=== PATIENT | male | born 1975 | race Caucasian/White ===

== ENCOUNTER 2023-04-13 11:23 | Outpatient (AMB) | payer OTHER, SELFPAY ==
--- NOTE | 2023-04-13 11:25 | MHC.OFFVIS ---
Intake Vital Signs 04/13/23 11:32 Height 5 ft 10 in Weight 231 lb BMI 33.1 BP 129/64 Blood Pressure Location Lt brachial Position Sitting Pulse 62 Intake Visit Reasons: Colonoscopy screening Intake Note: New consult for 1st pre Colonoscopy screening. Patient cc: acid reflex with burning sensation after eating and medication for PPI are not helping him. Fire Regulator Required: No Accompanied by: Spouse Allergies No Known Allergies Allergy (Verified 04/13/23 11:25) Medication List - Last Reconciled 04/13/23 by Kellee Guerrero PA-C No Known Home Meds HPI HPI Comments History of Present Illness Details A 47-year-old male referred for index screening colonoscopy- Mat GM- CRC in her 80s- Bowels are normal For the past year-Acid reflux- wakes up with it-taking pantoprazole or omeprazole inconsistenly-good appetite- no weight gain He has made dietary modifications he does not identify anything specific that causes No cardiac or respiratory issue No N/V/D/ abdominal pain, fever or chills PFSH Social History (Updated 04/13/23 @ 11:49 by Kellee Guerrero PA-C) Household Members Other:: 2 kids Comment: socially Patient Tobacco Use Status: Never used Tobacco Current occupational status: employed 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 Review of Systems Const All systems reviewed & are unremarkable except as noted in HPI and below Card Denies chest pain and Denies dyspnea Resp Denies dyspnea GI Denies abdominal pain, Reports change in bowel habits, Reports heartburn, Denies nausea and Denies vomiting Physical Exam Vital Signs: Last Vital Signs Pulse 62 04/13/23 11:32 BP 129/64 04/13/23 11:32 BMI result Body Mass Index 33.1 Const General: cooperative, healthy appearing, comfortable and no acute distress Orientation/consciousness: patient oriented x3 Limitations: language barrier Eyes Sclerae: sclerae normal Resp Effort & Inspection: normal respiratory effort and able to speak in complete sentences Auscultation: clear to auscultation bilaterally, no rales, no rhonchi and no wheezes Cardio Rate: regular rate Rhythm: regular rhythm Heart sounds: S1 normal heart sound present and S2 normal heart sound present GI Palpation (GI): Soft to palpation and nontender Auscultation: normal bowel sounds Skin General skin exam: no rashes or lesions noted Neuro General: patient oriented x3 Extrem General: Yes full ROM Psych Appearance: grossly normal and well kempt Mental Status: mental status grossly normal Speech and movement: Normal speech and movement present and Clear speech present Affect: normal affect Attitude: cooperative Thought process: Normal thought process present Thought content: Normal thought content present Insight: Good insight present (Psych) Judgement: Good judgement present (Psych) Assessment & Plan Assessment & Plan (1) Encounter for screening colonoscopy: Comment: Discussed procedure, risks need for escorted due to anesthesia- 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 Code(s): Z12.11 - Encounter for screening for malignant neoplasm of colon Plan: Index screening colonoscopy (2) Acid reflux: Comment: Unable to identify anything specific Code(s): K21.9 - Gastro-esophageal reflux disease without esophagitis Plan: Reflux precautions Pantoprazole 20 mg daily EGD r/o pud, nonulcer dyspepsia, esophagitis or other endoscopic findings to account for his symptoms Plan EGD/ colon- MG prep pantoprazole 20 Orders: Orders EGD/[place] Combo - GI Use Only Today Medications: New bisacodyl (Dulcolax (bisacodyl)) Day before procedure, prep day Take 4 tablets by mouth upon awakening followed by large glass of water 20 mg (4 x 5 mg) PO ONCE 4 tabs 0RF colonoscopy prep 1 day Z12.11 - Encounter for screening for malignant neoplasm of colon polyethylene glycol 3350 (Miralax) Take as directed by mouth the day before your procedure. 238 grams PO ONCE PRN 238 grams 0RF laxative effect 1 day pantoprazole 20 mg PO QAM 30 tabs 6RF Patient Instructions: EGD/ colon- MG prep reviewed, and literature Reflux precautions pantoprazole 20 mg QD-be consistent Try to identify culprits and avoid Encouraged to call questions or concerns Coding Level of Care Code New Pt Level 3 (15929) Diagnoses Encounter for screening colonoscopy Z12.11 Acid reflux K21.9 Time Spent (min) 30
[2023-04-13 11:32] VITALS: BP 129/64; PULSE 62; BMI 33.1
== END 2023-04-13 13:00 | disposition home or self-care (01) ==
PROVIDERS: PCP Internal Medicine; Visit Provider Physician Assistant
DX: Z12.11 Encounter for screening for malignant neoplasm of colon (principal); K21.9 Gastro-esophageal reflux disease without esophagitis; Z01.818 Encounter for other preprocedural examination
CPT/HCPCS: 99203

== ENCOUNTER → 2023-04-13 11:23 | Outpatient (BNVA) | payer OTHER, SELFPAY | PROVIDERS: PCP Internal Medicine; Visit Provider Physician Assistant | DX: Z12.11 Encounter for screening for malignant neoplasm of colon (principal); K21.9 Gastro-esophageal reflux disease without esophagitis | CPT/HCPCS: 99202 ==

== ENCOUNTER 2023-04-24 12:38 | Outpatient (REF) | payer OTHER, SELFPAY ==
[2023-04-25 04:15] LABS: HBS Num1 0.23 mIU/mL (0-7.99); HBc Num1 0.04 S/CO (0.00-0.79); HBsAGNum1 0.36 S/CO (0.00-0.99); Hepatitis A Antibody IgM 0.41 Index (0-0.79); Hepatitis B Core Antibody Nonreactive (Nonreactive); Hepatitis B Surface Antigen Negative (Negative); ~HepC Num1 0.14 S/CO (0.00-0.79); ~Hepatitis A Antibody IgM Nonreactive (Nonreactive); ~Hepatitis B Surface Antibody NONREACTIVE (Nonreactive); ~Hepatitis C Antibody Nonreactive (Nonreactive)
[2023-04-28 05:28] LABS: Rubella IgG Antibody 2.14 Index
[2023-04-29 17:54] LABS: Polio 3 Titer >1:128
== END 2023-04-24 12:39 | disposition home or self-care (01) ==
LOC: HO.CHCLDS 12:38
PROVIDERS: Visit Provider Internal Medicine
DX: Z00.00 Encounter for general adult medical examination without abnormal findings (principal)
CPT/HCPCS: 36415; 86382; 86704; 86706; 86709; 86735; 86762; 86765; 86787; 86803; 87340

== ENCOUNTER 2023-04-27 08:43 | Outpatient (REF) | payer OTHER, SELFPAY ==
[2023-04-29 20:24] LABS: TS Negative Control Passed; TS Panel A 1; TS Panel B 1; TS Positive Control Passed; TSpotTB Negative (Negative)
== END 2023-04-27 08:44 | disposition home or self-care (01) ==
LOC: HO.CHCLDS 08:43
PROVIDERS: Visit Provider Internal Medicine
DX: Z00.00 Encounter for general adult medical examination without abnormal findings (principal); Z11.1 Encounter for screening for respiratory tuberculosis
CPT/HCPCS: 36415; 86481

== ENCOUNTER 2023-08-12 11:01 | Day surgery (SDC) | payer OTHER, SELFPAY ==
[2023-08-11 07:38] VITALS: BMI 33.1
--- NOTE | 2023-08-11 08:33 | P.CONAN_ITS ---
Documented by User: Lisbet Griffin NP 08/11/23 08:33 HPI - Anesthesia Eval Consult details Narrative: 48yo M for Upper Endoscopy and Colonoscopy FOR[facility]LY [facility], [facility] Active Problems Active Problems: All Active Problems Acid reflux (Acute) H/O vasectomy (Acute) Encounter for screening colonoscopy (Acute) Past Medical History Medical History GERD (gastroesophageal reflux disease) Surgical History Surgical History Surgical history unknown Social History Social History Household Members Other:: 2 kids Comment: socially Patient Tobacco Use Status: Never used Tobacco Advance Directives: No Advance Directives Information Provided: Yes Current occupational status: employed 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 Meds Allergies Allergy/AdvReac Type Severity Reaction Status Date / Time No Known Allergies Allergy Verified 04/13/23 11:25 Exam Height,Weight and Vital Signs: Height 5 ft 10 in Weight 104.78 kg Assessment and Plan Assessment Anesthesia Assessment: Chart Reviewed Documented by User: Araseli Maciel MD 08/12/23 11:16 [facility]LY [facility], [facility] Past Medical History Medical History GERD (gastroesophageal reflux disease) Surgical History Surgical History Surgical history unknown History of Problems with Anesthesia: No Social History Social History Household Members Other:: 2 kids Comment: socially Patient Tobacco Use Status: Never used Tobacco Advance Directives: No Advance Directives Information Provided: Yes Current occupational status: employed 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 Meds Allergies Allergy/AdvReac Type Severity Reaction Status Date / Time No Known Allergies Allergy Verified 04/13/23 11:25 Exam Airway Mallampati Class: III TM Dist: >3cm Neck ROM: Full Loose/Missing/Broken Teeth: No Heart: RRR Lungs: CTA Assessment and Plan Assessment Anesthesia Assessment: Anesthesia Plan Discussed Final Anesthetic Review History of Problems with Anesthesia: No NPO: Yes ASA Class: II Final Preanesthetic Review: Meds/Allgs Chart Reviewed, Consent Obtained/Reviewed and Anes Risks/Benef Reviewed Patient Risk: Low Procedure Risk: Intermediate Anesthetic Plan Anesthetic Plan: MAC: Disposition: Standard PACU
--- OUTSIDE RECORDS SUMMARY | 2023-08-12 11:04 | XMS_ITS | Continuity of Care Document ---
Author Name [facility] Care Team Providers Care Vacuum Technician Name Role Phone [facility] Unavailable Unavailable Problems Problem Status Onset Date Classification Date Reported Comments Source Unspecified abdominal pain 01/26/2018 [facility] Right lower quadrant pain 01/26/2018 [facility] Medications Medication Details Route Status Patient Instructions Ordering Provider Order Date Source Ibuprofen 600 MG Oral Tablet 1 Tab, PO, TID, PRN for pain, Qty: 30 Tab, Refills: 0, with food or milk, Print Requisition Active 01/20/20 18 [facility] No Known Medications No known medications Active 01/20/20 18 [facility] Results Order Name Results Value Reference Range Date Interpretation Comments Source UA Appearance Slightly Cloudy Clear 2017 A [facility] UA Color Yellow Yellow 2017 [facility] UA Specific [place] 1.010 1.005 - 1.030 2017 [facility] UA UpH 5.0 5.0 - 9.0 2017 [facility] UA UBlood Trace-inta ct Negative 2017 A [facility] UA UBilirubin Negative Negative 2017 [facility] UA UGlucose Negative Negative 2017 [facility] UA UKetones Negative Negative 2017 [facility] UA ULeukocyte Esterase Negative Negative 2017 [facility] UA UNitrite Negative Negative 2017 [facility] UA UProtein Negative Negative 2017 [facility] UA UA Urobilinogen 0.2 0.2 E.U./dL 2017 [facility] Urinalysis Appearance Slightly Cloudy *ABN* (01/19/18 1:27 PM) Clear 2017 [facility] Urinalysis Color Yellow (01/19/18 1:27 PM) Yellow 2017 [facility] Urinalysis UNitrite Negative (01/19/18 1:27 PM) Negative 2017 [facility] Urinalysis ULeukocyte Esterase Negative (01/19/18 1:27 PM) Negative 2017 [facility] Urinalysis UA Urobilinogen 0.2 E.U./dL (01/19/18 1:27 PM) 0.2 E.U./dL 2017 [facility] Urinalysis UProtein Negative (01/19/18 1:27 PM) Negative 2017 [facility] Urinalysis UKetones Negative (01/19/18 1:27 PM) Negative 2017 [facility] Urinalysis UGlucose Negative (01/19/18 1:27 PM) Negative 2017 [facility] Urinalysis Specific [place] 1.010 (01/19/18 1:27 PM) 1.005 - 1.030 2017 [facility] Urinalysis UBlood Trace-inta ct *ABN* (01/19/18 1:27 PM) Negative 2017 [facility] Urinalysis UpH 5.0 (01/19/18 1:27 PM) 5.0 - 9.0 2017 [facility] Urinalysis UBilirubin Negative (01/19/18 1:27 PM) Negative 2017 [facility] Diagnostic Reports Report Value Date Source CT Abdomen+Pelvis wo Con Reason For Exam Acute R flank pain HISTORY : Acute R flank pain TECHNIQUE: Helically acquired images were obtained of the abdomen and pelvis without oral or IV contrast as per renal stone protocol. A radiation dose optimization technique was used for this scan. IV Contrast dosage and agent: None. Oral contrast: None. COMPARISON: None FINDINGS: # of images incl. paperwork: 393. LOWER CHEST: Mild dependent atelectasis in the included lung bases. Borderline size heart. LIVER: Hepatomegaly measuring 18.8 cm craniocaudally. GALLBLADDER AND BILIARY TREE: No calcified gallstones. There is no gallbladder distension or wall edema. No intra- or extrahepatic biliary ductal dilation. KIDNEYS AND URETERS: Normal renal size and position. There is no hydronephrosis or nephrolithiasis/urolithiasis. ADRENAL GLANDS: Non-enlarged. SPLEEN: Splenomegaly measuring 16.8 cm craniocaudally. PANCREAS: No focal cystic or solid mass. BOWEL: No stomach or bowel distension. No focal inflammatory change observed. LYMPH NODES: No enlarged mesenteric or retroperitoneal lymph nodes. PERITONEUM: No ascites or free air. No other fluid collection. VESSELS: Aorta is non-dilated. URINARY BLADDER: Incompletely distended, otherwise grossly unremarkable. REPRODUCTIVE ORGANS: No pelvic masses or pelvic ascites. ABDOMINAL WALL: No discrete abdominal or pelvic wall hernia observed. BONES: No lytic or blastic abnormality observed. IMPRESSION: 1. No nephrolithiasis, urolithiasis, or urinary obstruction. 2. Hepatosplenomegaly. Individualized dose optimization techniques were used for this CT. * * * F I N A L * * * Dictated by: Butch Mcgraw DO Electronically signed by: Butch Mcgraw DO Transcribed by:IR , , , S: 01/19/2018 13:52 * * * F I N A L * * * 01/19/2018 [facility] Consultation Notes Results Value Date Source ED Physician Notes Patient: TREVOR ROCK (EM) Age: 42 years Sex: M : 1975 Associated Diagnoses: None Author: Dario Mackay DO Basic Information Time seen: Provider Initial Contact Time 01/19/2018 12:44. History source: Patient. Arrival mode: Private vehicle. History limitation: None. History of Present Illness The patient presents with abdominal pain and flank pain. The onset was 2 weeks ago. The course/duration of symptoms is constant. The degree at onset was moderate. The Location of pain at onset was right, lower, abdominal and flank. The degree at present is moderate. The Location of pain at present is right, lower, abdominal and flank. Radiating pain: none. The exacerbating factor is none. The relieving factor is none. Therapy today: none. Risk factors consist of none. Associated symptoms: back pain. 42 year old male pt presents to the ED with right flank pain for the past couple of days. states that he has been having right side pain for the past two weeks but off and on. She states that she thought it was his sciatica but the past few days he has been in a lot of pain. Pt denies blood in urine and having kidney stones. Pt states that he is having pain when urinating. Pt does not recall any injuries.. Review of Systems Constitutional symptoms: No fever, no chills. Skin symptoms: No rash, Eye symptoms: Vision unchanged. ENMT symptoms: No sore throat, Respiratory symptoms: No shortness of breath, no orthopnea, no cough. Cardiovascular symptoms: No chest pain, no syncope. Gastrointestinal symptoms: No abdominal pain, no nausea, no vomiting. Musculoskeletal symptoms: Back pain, flank pain. Neurologic symptoms: No headache, Psychiatric symptoms: No anxiety, Health Status Allergies: No known allergies. Medications: Per nurse's notes. Immunizations: Per nurse's notes. Past Medical/ Family/ Social History Medical history: Reviewed as documented in chart. Surgical history: Reviewed as documented in chart. Family history: Reviewed as documented in chart. Social history: Social and Psychosocial Habits Alcohol 01/19/2018 Use: Current Home/Environment 01/19/2018 Congregational restrictions/concerns: None Substance Abuse 01/19/2018 Use: Denies Tobacco 01/19/2018 Tobacco Use Never (less than 100 in l . Problem list: Per nurse's notes. Physical Examination Vital Signs Vital-Signs 01/19/2018 12:36 PDT Temperature PO 36.9 deg C Heart Rate 65 bpm NIBP Systolic 131 mm Hg NIBP Diastolic 70 mm Hg Resp Rate (Monitor) 18 Breaths/Min SPO2 99 % Oxygen Amount Room air . General: Alert, moderate distress. Skin: Warm, dry. Head: Normocephalic, atraumatic. Neck: Supple, trachea midline. Ears, nose, mouth and throat: Oral mucosa moist. Cardiovascular: Regular rate and rhythm, No murmur. Respiratory: Lungs are clear to auscultation, respirations are non-labored, breath sounds are equal. Chest wall: No tenderness. Back: Nontender, Normal range of motion, Normal alignment. Musculoskeletal: Normal ROM. Gastrointestinal: Soft, Non distended, mild right flank tenderness. No tenderness over McBurney's point. Neurological: Alert and oriented to person, place, time, and situation, No focal neurological deficit observed, normal speech observed. Psychiatric: Cooperative, appropriate mood and affect. Medical Decision Making Differential Diagnosis: Flank pain. Documents reviewed: Emergency department nurses' notes. Results review: Lab results : Laboratory 01/19/2018 13:27 PDT Color Yellow Appearance Slightly Cloudy Specific [place] 1.010 UpH 5.0 UGlucose Negative UBilirubin Negative UKetones Negative UBlood Trace-intact UProtein Negative UA Urobilinogen 0.2 E.U./dL UNitrite Negative ULeukocyte Esterase Negative . Radiology results: Computed tomography, without contrast, Radiologist's interpretation Name: TREVOR ROCK Account: [id number] : 1975 Result Date: 01/19/18 13:37 Verified By: Butch Mcgraw DO at 01/19/18 13:52 Report : CT Abdomen+Pelvis wo Con HISTORY : Acute R flank pain TECHNIQUE: Helically acquired images were obtained of the abdomen and pelvis without oral or IV contrast as per renal stone protocol. A radiation dose optimization technique was used for this scan. IV Contrast dosage and agent: None. Oral contrast: None. COMPARISON: None FINDINGS: # of images incl. paperwork: 393. LOWER CHEST: Mild dependent atelectasis in the included lung bases. Borderline size heart. LIVER: Hepatomegaly measuring 18.8 cm craniocaudally. GALLBLADDER AND BILIARY TREE: No calcified gallstones. There is no gallbladder distension or wall edema. No intra- or extrahepatic biliary ductal dilation. KIDNEYS AND URETERS: Normal renal size and position. There is no hydronephrosis or nephrolithiasis/urolithiasis. ADRENAL GLANDS: Non-enlarged. SPLEEN: Splenomegaly measuring 16.8 cm craniocaudally. PANCREAS: No focal cystic or solid mass. BOWEL: No stomach or bowel distension. No focal inflammatory change observed. LYMPH NODES: No enlarged mesenteric or retroperitoneal lymph nodes. PERITONEUM: No ascites or free air. No other fluid collection. VESSELS: Aorta is non-dilated. URINARY BLADDER: Incompletely distended, otherwise grossly unremarkable. REPRODUCTIVE ORGANS: No pelvic masses or pelvic ascites. ABDOMINAL WALL: No discrete abdominal or pelvic wall hernia observed. BONES: No lytic or blastic abnormality observed. IMPRESSION: 1. No nephrolithiasis, urolithiasis, or urinary obstruction. 2. Hepatosplenomegaly. Individualized dose optimization techniques were used for this CT. 01/19/18 13:52 ++++++++++++++++++++++++++++++++ +++++++++++++++++++++++ . Reexamination/ Reevaluation Time: 01/19/18 13:56:00 . Notes: Pain has improved, Pain is worsened with movement indicating that the pain is likely musculoskeletal in nature.. Impression and Plan Diagnosis Flank pain ([id number] R10.9, Discharge, Medical) Plan Condition: Improved, Stable. Disposition: Medically cleared, Discharged: Time 01/19/18 14:01:00, to home. Prescriptions: Launch Meds List (Selected) Prescriptions Prescribed ibuprofen 600 mg oral tablet: 1 Tab, PO, TID, with food or milk, PRN: for pain, 30 Tab, 0 Refill(s). Patient was given the following educational materials: Flank Pain, Adult, [id number]. Follow up with: Follow up with primary care provider In 3 days 01/22/2018 Call for follow up appointment If symptoms persist, an outpatient MRI may be indicated. . Counseled: Patient, Regarding diagnosis, Regarding diagnostic results, Regarding treatment plan, Regarding prescription, Patient indicated understanding of instructions. Notes: I have read the Medical Record and Scribe entries. I approve the care and treatment provided to this patient, as recorded by the Scribe(s).This document was transcribed by arvind Costa on 01/19/18 12:51 for Provider: Dario Mackay. . Electronically Signed By: Dario Mackay DO On 01/21/18 17:21 Co Signature By: Modified Signature By: Sarah Costa On 01/19/18 13:35 01/19/2018 [facility] Vital Signs Vital Sign Value Date Comments Source Respiratory Rate 17 Breaths/Min 01/19/2018 [facility] Heart Rate 61 bpm 01/19/2018 [facility] Systolic 124 mm[Hg] 01/19/2018 [facility] Diastolic 64 mm[Hg] 01/19/2018 [facility] Oxygen Amount Room air (01/19/18 2:10 PM) 01/19/2018 [facility] SPO2 100 % 01/19/2018 [facility] Weight Method Actual (01/19/18 12:36 PM) 01/19/2018 [facility] BMI 20.83 01/19/2018 [facility] Drug Calc Weight (kg) 69 kg 01/19/2018 [facility] Height 182 cm 01/19/2018 [facility] Sensory Deficits None (01/19/18 12:36 PM) 01/19/2018 [facility] Temperature PO 36.9 Marianne 01/19/2018 [facility] Oxygen Amount Room air (01/19/18 12:36 PM) 01/19/2018 [facility] Systolic 131 mm[Hg] 01/19/2018 [facility] Diastolic 70 mm[Hg] 01/19/2018 [facility] Respiratory Rate 18 Breaths/Min 01/19/2018 [facility] SPO2 99 % 01/19/2018 [facility] Heart Rate 65 bpm 01/19/2018 [facility] Encounters Location Location Details Encounter Type Encounter Number Reason For Visit Attending Provider ADM Date DC Date Status Source [facility] Emergency [id number] 01/19 [facility] Social History Social History Date Source Social History TypeResponse Smoking Status Never (less than 100 in lifetime) entered on: 01/19/18 01/19/2018 [facility] Ariella Smith Assessment and Plan Result Assessment and Plan Date Source Assessment and Plan No data available fo r this section 01/19/2018 [facility] Ariella Smith
--- OUTSIDE RECORDS SUMMARY | 2023-08-12 11:04 | XMS_ITS | Summary of Care ---
Author Organization [facility] [place] Address [address] [place] [address]- Encounter SNEM_FIN [id number] Date(s): 01/19/18 - 01/19/18 [facility] [place] [address] [place] [address]- [facility] Encounter Diagnosis Flank pain(Discharge Diagnosis) - 01/19/18 Right lower quadrant pain(Final) - Discharge Disposition: Home/self care Vital Signs Most recent to oldest [Reference Range]: 1 2 Sensory Deficits None (01/19/18 12:36 PM) Temperature PO [36-37.5 deg C] 36.9 deg C (01/19/18 12:36 PM) Heart Rate [51-119 bpm] 61 bpm (01/19/18 2:10 PM) 65 bpm (01/19/18 12:36 PM) Resp Rate (Monitor) [13-20 Breaths/Min] 17 Breaths/Min (01/19/18 2:10 PM) 18 Breaths/Min (01/19/18 12:36 PM) Oxygen Amount Room air (01/19/18 2:10 PM) Room air (01/19/18 12:36 PM) SPO2 [93-100 %] 100 % (01/19/18 2:10 PM) 99 % (01/19/18 12:36 PM) Blood Pressure [91-139/51-89 mm Hg] 124/ 64mm Hg (01/19/18 2:10 PM) 131/70mm Hg (01/19/18 12:36 PM) BMI 20.83 (01/19/18 12:36 PM) Height [244 cm] 182 cm (01/19/18 12:36 PM) Drug Calc Weight (kg) 69 kg (01/19/18 12:36 PM) Weight Method Actual (01/19/18 12:36 PM) Allergies, Adverse Reactions, Alerts No Known Allergies Medications No Known Medications Results Urinalysis Most recent to oldest [Reference Range]: 1 Color [Yellow] Yellow (01/19/18 1:27 PM) Appearance [Clear] Slightly Cloudy *ABN* (01/19/18 1:27 PM) Specific [place] [1.005-1.030] 1.010 (01/19/18 1:27 PM) UpH [5.0-9.0] 5.0 (01/19/18 1:27 PM) UGlucose [Negative] Negative (01/19/18 1:27 PM) UBilirubin [Negative] Negative (01/19/18 1:27 PM) UKetones [Negative] Negative (01/19/18 1:27 PM) UBlood [Negative] Trace-intact *ABN* (01/19/18 1:27 PM) UProtein [Negative] Negative (01/19/18 1:27 PM) UA Urobilinogen [0.2 E.U./dL] 0.2 E.U./d L (01/19/18 1:27 PM) UNitrite [Negative] Negative (01/19/18 1:27 PM) ULeukocyte Esterase [Negative] Negative (01/19/18 1:27 PM) Social History Social History Type Response Smoking Status Never (less than 100 in lifetime) entered on: 01/19/18 Hospital Discharge Instructions Patient Education 01/19/2018 12:37:16 Flank Pain, Adult, [employer] Flank Pain Flank pain is pain in your side. The flank is the area of your side between your upper belly (abdomen) and your back. The pain may occur over a short period of time (acute) or may be long-term or come back often (chronic). It may be mild or very bad. Pain in this area can be caused by many different things. Follow these instructions at home: ??? Rest as told by your doctor. ??? Drink enough fluid to keep your pee (urine) clear or pale yellow. ??? Take nvpr-osi-tvsshuv and prescription medicines only as told by your doctor. ??? Keep all follow-up visits as told by your doctor. This is important. Contact a doctor if: ??? Medicine does not help your pain. ??? You have new symptoms. ??? Your pain gets worse. ??? You have a fever. ??? Your symptoms last longer than 2???3 days. Get help right away if: ??? Your tummy hurts or is swollen. ??? You are short of breath. ??? You feel sick to your stomach (nauseous) and it does not go away. ??? You cannot stop throwing up (vomiting). ??? You feel like you will pass out or you do pass out (faint). ??? You have blood in your pee. ??? You have a fever and your symptoms suddenly get worse. This information is not intended to replace advice given to you by your health care provider. Make sure you discuss any questions you have with your health care provider. Document Released: 12/30/2008 Document Revised: 12/12/2016 Document Reviewed: 12/25/2015 [employer] Patient Education ?? 2018 [employer] Follow Up Care 01/19/2018 12:37:16 With:Follow up with primary care provider Address:Unknown When:01/22/2018 14:03:12 Comments:Call for follow up appointment If symptoms persist, an outpatient MRI may be indicated.
--- OUTSIDE RECORDS SUMMARY | 2023-08-12 11:04 | XMS_ITS | Summary of Care ---
Author Organization [facility] Address [address] [place] [address]- Encounter SNEM_FIN [id number] Date(s): 01/19/18 - 01/19/18 [employer] ([employer] [address] [place], [place] [address]- [facility] Encounter Diagnosis Flank pain(Discharge Diagnosis) - 01/19/18 Discharge Disposition: Home/self care Vital Signs Most [...] Adverse Reactions, Alerts No Known Allergies Medications ibuprofen 600 mg oral tablet 1 Tab, PO, TID, PRN for pain, Qty: 30 Tab, Refills: 0, with food or milk, Print Requisition Start Date: 01/19/18 Stop Date: 01/25/18 Status: Ordered Results Urinalysis Most recent to oldest [Reference Range]: 1 Color [Yellow] Yellow (01/19/18 1:27 PM) Appearance [Clear] Slightly Cloudy *ABN* (01/19/18 1:27 PM) Specific [place] [1.005-1.030] 1.010 (01/19/18 1:27 PM) UpH [5.0-9.0] [...] Patient Education 01/19/2018 12:37:16 Flank Pain, Adult, Hzee-jz-Azak Flank Pain Flank pain is pain in [...] (urine) clear or pale yellow. ??? Take prva-wgb-iumoqfx and prescription medicines only as told by [...] 12/30/2008 Document Revised: 12/12/2016 Document Reviewed: 12/25/2015 [employer] Interactive Patient Education ?? 2018 [employer] Follow Up Care 01/19/2018 12:37:16 With:Follow up with primary care provider Address:Unknown When:01/22/2018 14:03:12 Comments:Call for follow up appointment If symptoms persist, an outpatient MRI may be indicated.
[2023-08-12 11:10] VITALS: BP 134/78; PULSE 54; RESP 20; TEMP 36.1; O2SAT 97
[2023-08-12] MEDS: Lactated Ringers 1,000 ML 100 ML IVCONT (11:31)
--- NOTE | 2023-08-12 12:14 | MHC.SHP ---
Pre-Procedural Eval Section A - 24 Hr Update-Section A only Date of Service: 08/12/23 Section B - Complete if H&P > 30 days Chief Complaint: Gastro-esophageal reflux disease without esophagit Details of Present Illness: colon screening Relevant Family History (Specify if Yes): Yes Relevant Social History: None Present Medications: see Short Stay Collaborative assessment Medical History: Significant History (GERD (gastroesophageal reflux disease)) History of Previous Operations: Relevant previous surgery/procedure and date(s) (vasectomy) Allergies: Allergies Allergy/AdvReac Type Severity Reaction Status Date / Time No Known Allergies Allergy Verified 04/13/23 11:25 Review of Systems Sugical H&P ROS: Negative: Constitution, Cardiovascular, Respiratory, Neurological, Psychiatric, Hem-Onc, Allergic/Immunologic, Gastrointestinal, Genitourinary, Musculoskeletal, Integumentary, Endocrine and Eyes/Ears/Nose/Throat Exam Surgical H&P Exam: Normal: HEENT, Normal: Heart, Normal: Lungs, Normal: Extremities, Normal: Abdomen, Normal: Skin and Normal: Neurological Plan Diagnosis/Plan: Unchanged I have reviewed the history and physical and performed a pertinent physical examination on my patient. No changes have occurred unless specified. Time Spent With Patient Time: Total time managing care of this patient today ____ minutes.
--- NOTE | 2023-08-12 13:10 | P.OPN-COLO_ITS ---
Colonoscopy Operative Note Operative Note Date of Service: 08/12/23 Narrative: Operative Information Procedure Description: EGD, Colonoscopy Indication: GERD, colon screening Anesthesia: MAC FLEXIBLE TRANSORAL UPPER GASTROINTESTINAL ENDOSCOPY AND COLONOSCOPY PROCEDURE NOTE UPPER ENDOSCOPY Consent: Indications for the procedure and potential complications of bleeding, perforation, reaction to medications and missed diagnosis were discussed with the patient and informed consent was obtained. Instrument: Olympus GIF H 190 J mid size upper endoscope Monitoring: Vital signs and clinical assessment, continuous EKG monitoring, Pulse oximetry, Carbon Dioxide monitoring and blood pressure monitoring were done throughout the procedure. Procedure: The patient was placed in the left lateral decubitis position and pre-procedure medications were administered and a bite block was placed. The endoscope was inserted into the mouth and advanced under direct vision to the third part of duodenum. A careful inspection was made as the upper endoscope was withdrawn including a retroflexed examination of the proximal stomach; Findings and interventions are described below. Findings: Larynx:normal Esophagus: GE junction at 42 cm, diaphragm hiatus at 42 cm, small islands of salmon pink tissue, possible barretts, bx taken from GEJ, distal and proximal esophagus Stomach: Patchy erythema. Biopsies were obtained. Grade 2 flap valve on retroflexed examination of the cardia. polypoid lesion at antrum 10 mm removed with cold snare Duodenum: Normal bulb and descending duodenum, Intervention: Biopsies as noted above, cold snare COLONOSCOPY Instrument: Olympus variable stiffness pediatric scope 190L Colonoscopy Monitoring: Vital signs and clinical assessment, continuous EKG monitoring, Pulse oximetry, Carbon Dioxide monitoring and blood pressure monitoring were done throughout the procedure. Colon withdrawal time was 10 minutes. Procedure: The patient was placed in the left lateral decubitis position and pre-procedure medications were administered. After a digital rectal examination of the ano-rectum, the video colonoscope was inserted into the rectum and advanced through the colon to the cecum/TI. The colonoscope was slowly withdrawn in a retrograde panoramic fashion and the colon mucosa was carefully examined including a retroflexed view of the rectum. Findings and interventions are described below. Procedure Difficulty:moderate Findings: Terminal Ileum-normal Cecum:normal Right sided retroflexion- normal Ascending Colon: normal Transverse Colon -normal Descending Colon: 8-10 mm sessile polyp removed with cold snare Sigmoid Colon: x2 sessile polyps 5-6 mm removed with cold forceps Rectum: Retroflexion with small internal hemorrhoids, grade I, 4-6 mm sessile polyp removed with cold forceps Anorectum - normal Colon preparation: [place] Bowel Preparation Scale Right colon; 2 Transverse colon: 3 Left colon; 3 (0 = Unprepared colon segment with mucosa not seen due to solid stool that c annot be cleared. 1 = Portion of mucosa of the colon segment seen, but other areas of the colon segment not well seen due to staining, residual stool and/or opaque liquid. 2 = Minor amount of residual staining, small fragments of stool and/or opaque liquid, but mucosa of colon segment seen well. 3 = Entire mucosa of colon segment seen well with no residual staining, small fragments of stool or opaque liquid) Impression and Post Procedure Diagnosis: Endoscopy Findings: gastritis gastric polyp possible barretts Colonoscopy Findings: colon polyps internal hemorrhoids Plan: Await Pathology results Repeat Colonoscopy in 5-7 years if adenomatous polyps, 10 yrs if non adenomatous or earlier if clinically indicated High fiber diet leaflet avoid straining at stool, epsom salts and sitz bath, anusol supps or cream GERD precautions Above findings were reviewed with the patient and relevant handouts were provided if indicated.
[2023-08-12 13:18] VITALS: BP 110/63; PULSE 48; RESP 16; TEMP 36.1; O2SAT 99
[2023-08-12 13:33] VITALS: BP 110/64; PULSE 60; RESP 15; O2SAT 96
[2023-08-12 13:49] VITALS: BP 117/73; PULSE 56; RESP 16; TEMP 36.2; O2SAT 96
== END 2023-08-12 14:30 | disposition home or self-care (01) ==
PROVIDERS: PCP Pediatrics; Visit Provider Internal Medicine Gastroenterology
PROC: (CPT 45385; principal; 2023-08-12 13:30)
DX: Z12.11 Encounter for screening for malignant neoplasm of colon (principal); D12.4 Benign neoplasm of descending colon; K63.5 Polyp of colon; K62.1 Rectal polyp; K64.0 First degree hemorrhoids; K21.00 Gastro-esophageal reflux disease with esophagitis, without bleeding; K29.70 Gastritis, unspecified, without bleeding; B96.81 Helicobacter pylori [H. pylori] as the cause of diseases classified elsewhere; K31.7 Polyp of stomach and duodenum
CPT/HCPCS: 45385; 45380; 43251; 43239; 88305; 88313; 88342; J2250; J2704

== ENCOUNTER → 2023-08-12 11:01 | Outpatient (BNV) | payer OTHER, SELFPAY | PROVIDERS: PCP Pediatrics; Visit Provider Internal Medicine Gastroenterology | DX: Z12.11 Encounter for screening for malignant neoplasm of colon (principal); D12.4 Benign neoplasm of descending colon; K63.5 Polyp of colon; K64.8 Other hemorrhoids; K21.00 Gastro-esophageal reflux disease with esophagitis, without bleeding; K22.70 Barrett's esophagus without dysplasia; K31.7 Polyp of stomach and duodenum | CPT/HCPCS: 43239; 43251; 45380; 45385 ==

== ENCOUNTER 2023-08-26 11:56 | Outpatient (AMB) | payer OTHER, SELFPAY ==
--- NOTE | 2023-08-26 11:59 | MHC.OFFVIS ---
Vital Signs 08/26/23 12:13 Height 5 ft 5 in Weight 221 lb BMI 36.8 BP 112/56 L Blood Pressure Location Lt brachial Position Sitting Pulse 52 Intake Visit Reasons: s/p egd/colon Intake Note: Patient follow up for EGD/Colonoscopy results. Kellee Guerrero current patient and he is complaining on acid reflex with burning sensation also he was with abdominal discomfort after his Colonoscopy. Denies any other GI issues. 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 Accompanied by: Spouse Allergies No Known Allergies Allergy (Verified 08/26/23 12:04) HPI HPI s/p egd/colon: Details: LAST VISIT WITH ANDREY GUERRERO (1) Encounter for screening colonoscopy: Comment: Discussed procedure, risks need for escorted due to anesthesia- present helps with director behavioral health Code(s): Z12.11 - Encounter for screening for malignant neoplasm of colon Plan: Index screening colonoscopy (2) Acid reflux: Comment: Unable to identify anything specific Code(s): K21.9 - Gastro-esophageal reflux disease without esophagitis Plan: Reflux precautions Pantoprazole 20 mg daily EGD r/o pud, nonulcer dyspepsia, esophagitis or other endoscopic findings to account for his symptoms UPPER ENDOSCOPY AND COLONOSCOPY: Findings: Larynx:normal Esophagus: GE junction at 42 cm, diaphragm hiatus at 42 cm, small islands of salmon pink tissue, possible barretts, bx taken from GEJ, distal and proximal esophagus Stomach: Patchy erythema. Biopsies were obtained. Grade 2 flap valve on retroflexed examination of the cardia. polypoid lesion at antrum 10 mm removed with cold snare Duodenum: Normal bulb and descending duodenum, Intervention: Biopsies as noted above, cold snare COLONOSCOPY Instrument: Olympus variable stiffness pediatric scope 190L Colonoscopy Monitoring: Vital signs and clinical assessment, continuous EKG monitoring, Pulse oximetry, Carbon Dioxide monitoring and blood pressure monitoring were done throughout the procedure. Colon withdrawal time was 10 minutes. Procedure: The patient was placed in the left lateral decubitis position and pre-procedure medications were administered. After a digital rectal examination of the ano-rectum, the video colonoscope was inserted into the rectum and advanced through the colon to the cecum/TI. The colonoscope was slowly withdrawn in a retrograde panoramic fashion and the colon mucosa was carefully examined including a retroflexed view of the rectum. Findings and interventions are described below. Procedure Difficulty:moderate Findings: Terminal Ileum-normal Cecum:normal Right sided retroflexion- normal Ascending Colon: normal Transverse Colon -normal Descending Colon: 8-10 mm sessile polyp removed with cold snare Sigmoid Colon: x2 sessile polyps 5-6 mm removed with cold forceps Rectum: Retroflexion with small internal hemorrhoids, grade I, 4-6 mm sessile polyp removed with cold forceps Anorectum - normal Colon preparation: [place] Bowel Preparation Scale Right colon; 2 Transverse colon: 3 Left colon; 3 (0 = Unprepared colon segment with mucosa not seen due to solid stool that cannot be cleared. 1 = Portion of mucosa of the colon segment seen, but other areas of the colon segment not well seen due to staining, residual stool and/or opaque liquid. 2 = Minor amount of residual staining, small fragments of stool and/or opaque liquid, but mucosa of colon segment seen well. 3 = Entire mucosa of colon segment seen well with no residual staining, small fragments of stool or opaque liquid) Impression and Post Procedure Diagnosis: Endoscopy Findings: gastritis gastric polyp possible barretts Colonoscopy Findings: colon polyps internal hemorrhoids Plan: Await Pathology results Repeat Colonoscopy in 5-7 years if adenomatous polyps, 10 yrs if non adenomatous or earlier if clinically indicated High fiber diet leaflet avoid straining at stool, epsom salts and sitz bath, anusol supps or cream GERD precautions PATHOLOGY: Diagnosis A. Stomach, random, biopsy: - Antral-type and oxyntic mucosa with moderate chronic inactive inflammation. - Positive for H pylori. B. Stomach, polyp: - Hyperplastic mucosal polyp with background moderate chronic active inflammation. - Positive for H. pylori. C. GE junction, biopsy: - Cardiofundic-type mucosa with moderate chronic inactive inflammation; no intestinal metaplasia seen. - Active esophagitis (maximum eosinophil count 1 per high powered field). D. Esophagus, distal, biopsy: Active esophagitis (maximum eosinophil count 1 per high powered field). E. Esophagus, proximal, biopsy: Squamous epithelium within normal limits; no inflammation seen. F. Colon, descending, polypectomy: Tubular adenoma; negative for high-grade dysplasia or carcinoma. G. Colon, sigmoid polyp, biopsy: Hyperplastic mucosal polyp. H. Rectum, polyp, biopsy: Hyperplastic mucosal polyp. TODAY'S VISIT: Patient was found to have H pylori. Reports epigastric pain currently is taking pantoprazole. Denies any ill effects from the prep, anesthesia or procedure itself. Denies any nausea or vomiting. Occasional dyspepsia without dysphagia or odynophagia. Denies melena, hematochezia. Reports that he is moving his bowels without any issues [facility] Medical History (Updated 09/02/23 @ 13:56 by Cherelle Cabrera [facility]) Helicobacter pylori (H. 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 Review of Systems Const Denies weight gain and Denies weight loss ENT Reports no additional complaints, Denies dysphagia and Denies odynophagia Card Reports no additional complaints Resp Reports no additional complaints GI Denies abdominal pain, Denies belching, Denies melena, Denies bloating, Denies change in bowel habits, Denies dysphagia, Denies excessive flatus, Reports dyspepsia, Reports heartburn, Denies diarrhea, Denies loose stools, Denies nausea, Denies odynophagia and Denies vomiting Reports no additional complaints Musc Reports no additional complaints Neuro Reports no additional complaints Psych Reports no additional complaints Endo Reports no additional complaints Physical Exam Vital Signs: Last Vital Signs Pulse 52 08/26/23 12:13 BP 112/56 L 08/26/23 12:13 BMI result Body Mass Index 36.8 Const General: healthy appearing and no acute distress Nutritional Appearance: obese Orientation/consciousness: patient oriented x3 Resp Effort & Inspection: normal respiratory effort, able to speak in complete sentences, no tracheal deviation and symmetric chest movement Auscultation: clear to auscultation bilaterally Cardio Rate: regular rate GI Inspection: Yes normal to inspection, No distended and Yes obesity Palpation (GI): Soft to palpation, not firm, nontender and No hepatosplenomegaly present Auscultation: normal bowel sounds General: Yes no CVA tenderness Back/Spine/Pelvis Back: no CVA tenderness Skin General skin exam: elasticity normal, turgor normal and dry skin Neuro General: patient oriented x3 Psych Appearance: grossly normal Mental Status: mental status grossly normal Assessment & Plan Assessment & Plan (1) Tubular adenoma of colon: Code(s): D12.6 - Benign neoplasm of colon, unspecified Category: Medical (2) Helicobacter pylori (H. pylori): Code(s): A04.8 - Other specified bacterial intestinal infections Category: Medical (3) Acid reflux: Code(s): K21.9 - Gastro-esophageal reflux disease without esophagitis Category: Medical Qualifiers: Esophagitis presence: esophagitis presence not specified Qualified Code(s): K21.9 - Gastro-esophageal reflux disease without esophagitis (4) Status post colonoscopy: Code(s): Z98.890 - Other specified postprocedural states Plan H pylori found on upper endoscopy and patient will need to be treated. Will start quadruple therapy. Patient was instructed to take all of his medication and he will need to be retested after. Increase pantoprazole to twice a day. Colonoscopy showed 1 tubular adenoma rest of the polyps were hyperplastic. No dysplasia or carcinoma was identified. Colonoscopy will need to be repeated in 5 years. Patient will return to our office in 3 months so he can get retested for H pylori. He is agreeable to this plan and verbalizes understanding of instructions. He was given the opportunity to ask questions and all questions answered. Thank you for allowing me to participate in her care Medications: New tetracycline 1,000 mg (2 x 500 mg) PO Q12H 56 caps 0RF A04.8 - Other specified bacterial intestinal infections metronidazole 1,000 mg (2 x 500 mg) PO BID 56 tabs 0RF A04.8 - Other specified bacterial intestinal infections bismuth subsalicylate 2 tabs PO QID 14 days 112 tabs 0RF A04.8 - Other specified bacterial intestinal infections Changed From pantoprazole 20 mg PO QAM 30 tabs 6RF To pantoprazole 20 mg PO BID 60 tabs 2RF Coding Level of Care Code Est Pt Level 4 (41726) Diagnoses Tubular adenoma of colon D12.6 Helicobacter pylori (H. pylori) A04.8 Gastroesophageal reflux disease, unspecified whether esophagitis present K21.9 Esophagitis presence: esophagitis presence not specified Status post colonoscopy Z98.890 Time Spent (min) 35 Comment 20 minutes spent with patient and additional 15 minutes spent reviewing his records
[2023-08-26 12:13] VITALS: BP 112/56; PULSE 52; BMI 36.8
== END 2023-08-26 12:28 | disposition home or self-care (01) ==
PROVIDERS: PCP Internal Medicine; Visit Provider Physician Assistant
DX: D12.6 Benign neoplasm of colon, unspecified (principal); A04.8 Other specified bacterial intestinal infections; K21.9 Gastro-esophageal reflux disease without esophagitis; Z98.890 Other specified postprocedural states
CPT/HCPCS: 99214

== ENCOUNTER → 2023-08-26 11:56 | Outpatient (BNVA) | payer OTHER, SELFPAY | PROVIDERS: PCP Internal Medicine; Visit Provider Physician Assistant | DX: K21.9 Gastro-esophageal reflux disease without esophagitis (principal); A04.8 Other specified bacterial intestinal infections; D12.6 Benign neoplasm of colon, unspecified; Z98.890 Other specified postprocedural states | CPT/HCPCS: 99212 ==

== ENCOUNTER 2023-09-14 08:44 | Outpatient (REF) | payer OTHER, SELFPAY ==
[2023-09-14 15:05] LABS: Alanine Aminotransferase 72 U/L (0-40); Albumin Level 4.2 g/dL (3.5-5.0); Alkaline Phosphatase 47 U/L (39-117); Anion Gap 10 (12-20); Aspartate Amino Transferase 32 U/L (5-37); Bilirubin Total 0.4 mg/dL (0.0-1.0); Blood Urea Nitrogen 16 mg/dL (9-16); Calcium 9.2 mg/dL (8.4-10.2); Carbon Dioxide 27 mmol/L (22-29); Chloride 106 mmol/L (96-108); Cholesterol 133 mg/dL (<200); Estimated Glomerular Filt Rate > 60; Glucose Random 91 mg/dL (60-115); HDL Cholesterol 43 mg/dL (>40); LDL Cholesterol Calculated 75 mg/dL (<100); Potassium 4.2 mmol/L (3.3-5.1); Sodium 139 mmol/L (135-145); Total Protein 6.8 g/dL (6.5-8.0); Triglycerides 76 mg/dL (<150)
[2023-09-14 15:23] LABS: TSH reflex Free T4 1.57 uIU/mL (0.32-4.0)
== END 2023-09-14 08:45 | disposition home or self-care (01) ==
LOC: HO.CHCLDS 08:44
PROVIDERS: Visit Provider Internal Medicine
DX: Z00.00 Encounter for general adult medical examination without abnormal findings (principal)
CPT/HCPCS: 36415; 80053; 80061; 84443

== ENCOUNTER 2023-10-13 08:25 | Outpatient (REF) | payer OTHER, SELFPAY ==
[2023-10-14 08:31] LABS: HBS Num1 9.41 mIU/mL (0-7.99); HBc Num1 0.08 S/CO (0.00-0.79); HBsAGNum1 0.28 S/CO (0.00-0.99); Hepatitis A Antibody IgM 0.42 Index (0-0.79); Hepatitis B Core Antibody Nonreactive (Nonreactive); Hepatitis B Surface Antigen Negative (Negative); ~HepC Num1 0.15 S/CO (0.00-0.79); ~Hepatitis A Antibody IgM Nonreactive (Nonreactive); ~Hepatitis C Antibody Nonreactive (Nonreactive)
[2023-10-14 09:47] LABS: HBS Num2 9.39 mIU/mL (0-7.99); HBS Num3 9.24 mIU/mL (0-7.99); ~Hepatitis B Surface Antibody GRAYZONE (Nonreactive)
== END 2023-10-13 08:26 | disposition home or self-care (01) ==
LOC: HO.CHCLDS 08:25
PROVIDERS: Visit Provider Internal Medicine
DX: R74.01 Elevation of levels of liver transaminase levels (principal)
CPT/HCPCS: 36415; 86704; 86706; 86709; 86803; 87340

== ENCOUNTER 2023-10-22 09:27 | Outpatient (AMB) | payer OTHER, SELFPAY ==
--- NOTE | 2023-10-22 09:28 | A.OFFVIS_ITS ---
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 Patient has bilateral leg pain and experiences some swelling at the end of the day. 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 Complaints include pain over varicosities, swelling of lower extremities, cramping, fatigue, and heaviness of the lower extremities. 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 It is noted more so in right leg. He notices prominent varicosities in the right posterior thigh. Patient denies any previous venous surgery or injections. Patient denies any history of DVT/ PE. Patient denies any history of phlebitis. Trial of compression includes - [id number] They now present for vascular evaluation regarding their varicose veins. [facility] Medical History (Updated 10/22/23 @ 09:47 by Tobias Stevenson MD) Helicobacter pylori (H. 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 Review of Systems Const Reports as per HPI ENT Reports no additional complaints Card Denies chest pain, Denies chest pain at rest and Denies chest pain with activity Resp Denies chest congestion and Denies cough GI Reports no additional complaints Musc Details: pain over varicosities, aching of lower extremities, swelling, cramping, heaviness and tiredness, itching Denies abnormal gait Skin/Breast Reports pruritus and Denies wounds Neuro Reports no additional complaints and Denies abnormal gait Psych Denies no additional complaints Physical Exam Const General: cooperative, healthy appearing and comfortable Orientation/consciousness: oriented to person, oriented to place and oriented to time Neck Carotids: no bruits Chest Chest palpation & inspection: normal inspection of the chest and normal palpation of entire chest wall Resp Effort & Inspection: normal respiratory effort and able to speak in complete sentences Cardio Rate: regular rate Heart sounds: S1 normal heart sound present and S2 normal heart sound present Peripheral pulses: Peripheral pulses 2+ throughout GI Inspection: Yes normal to inspection Skin Other: +2 edema, large rope-like varicosities greater than 4 mm right posterior thigh CEAP Classification C4 - skin color changes Ep - Etiology Primary As - superficial veins P - reflux General skin exam: dry skin Neuro General: oriented to person, oriented to place and oriented to time Extrem Right lower extremity: full ROM, normal capillary refill and edema Left lower extremity: full ROM, normal capillary refill and edema Psych Mental Status: mental status grossly normal Assessment & Plan Assessment & Plan (1) Varicose veins of right lower extremity with inflammation: Code(s): I83.11 - Varicose veins of right lower extremity with inflammation Category: Medical Plan: In short, the patient has evidence of venous insufficiency. I have discussed the pathophysiology with the patient. In addition I have provided informational material regarding venous disease to the patient. We have discussed conservative measures including compression, elevation, and exercise. I have also provided a handout regarding appropriate use of compression stockings and where to purchase good compression stockings as well. I have taken the liberty of ordering venous insufficiency testing with the patient. They will follow up with me after testing. The patient had an opportunity to ask questions regarding the treatment plan. All questions were answered. Imaging studies, laboratory studies and physical e xam results were discussed and reviewed in detail. No major barriers to understanding were identified. The patient expressed understanding and agreement with the above treatment plan. The patient is aware they should contact our office by phone for worsening of the current condition or the appearance of new symptoms. Thank you for allowing me to participate in the vascular care of this patient. If you have any questions or concerns regarding the treatment for the above condition please do not hesitate to contact me. The office telephone contact is [phone]. This note is constructed using voice recognition software. While every effort has been made to ensure accuracy, keyboard action assembler errors may have been included. Thank you for allowing me to participate in the care of your patient. Yours sincerely, Tobias Stevenson MD, FACS, R.P.V.I. Orders: Orders US venous duplex LE 1 Week I83.11 - Varicose veins of right lower extremity with inflammation Coding Level of Care Code New Pt Level 4 (20498) Diagnoses Varicose veins of right lower extremity with inflammation I83.11
== END 2023-10-22 09:44 | disposition home or self-care (01) ==
PROVIDERS: PCP Internal Medicine; Visit Provider Surgery Vascular Surgery
DX: I83.11 Varicose veins of right lower extremity with inflammation (principal)
CPT/HCPCS: 99204

== ENCOUNTER → 2023-10-22 09:27 | Outpatient (BNVA) | payer OTHER, SELFPAY | PROVIDERS: PCP Internal Medicine; Visit Provider Surgery Vascular Surgery | DX: I83.11 Varicose veins of right lower extremity with inflammation (principal) | CPT/HCPCS: 99202 ==

== ENCOUNTER 2023-11-04 08:05 | Outpatient (REF) | payer OTHER, SELFPAY ==
--- NOTE | ~2023-11-04 | US_ITS ---
EXAMINATION: US LOWER EXTREMITY VENOUS (REFLUX EXAM), BILATERAL CLINICAL INDICATION: Chronic venous insufficiency with lower extremity varicose veins with inflammation COMPARISON: None. TECHNIQUE: Color flow triplex imaging and compression Doppler was performed to evaluate both the deep and the superficial systems bilaterally. To evaluate the superficial system, the examination was performed in the upright position. Color-flow Doppler ultrasound and compression ultrasound were utilized. In addition, maneuvers were utilized to demonstrate reflux. FINDINGS: 1. DEEP VENOUS ULTRASOUND OF THE RIGHT LOWER EXTREMITY: Common Femoral Vein: Compressible, normal respiratory variation and augmented flow. Femoral Vein: Compressible, normal color flow and augmentation. Popliteal Vein: Compressible, normal augmentation. Deep Reflux: There is no evidence of reflux in the deep system in either the common femoral vein, superficial femoral or the popliteal vein. There is no evidence of a Gayle's cyst. 2. SUPERFICIAL ULTRASOUND WITH DOPPLER OF RIGHT LOWER EXTREMITY: GREAT SAPHENOUS VEIN: Saphenofemoral Junction: 0.6 cm; Reflux: 0 ms Proximal Thigh: 0.5 cm; Reflux: 3192 ms Mid Thigh: 0.4 cm; Reflux: 2480 ms Above Knee: 0.4 cm; Reflux: 2780 ms At Knee: 0.3 cm; Reflux: 0 ms Below Knee: 0.2 cm; Reflux: 0 ms Mid Calf: 0.3 cm; Reflux: 0 ms Ankle: 0.3 cm; Reflux: 0 ms DUPLICATED MEDIAL GREAT SAPHENOUS VEIN: Diameter: None imaged Reflux: NA DUPLICATED LATERAL GREAT SAPHENOUS VEIN: Diameter: None imaged Reflux: NA SMALL SAPHENOUS VEIN: Saphenopopliteal Junction: 0.2 cm; Reflux: 0 ms Proximal: 0.2 cm; Reflux: 0 ms Distal: 0.2 cm; Reflux: 0 ms VEIN OF GIACOMINI: Size: NA Reflux: NA PERFORATORS: Location: Proximal calf Size: 0.3 cm Reflux: None VARICOSITIES: Location: None significant Size: NA Reflux: NA 3. DEEP VENOUS ULTRASOUND OF THE LEFT LOWER EXTREMITY: Common Femoral Vein: Compressible, normal respiratory variation and augmented flow. Femoral Vein: Compressible, normal color flow and augmentation. Popliteal Vein: Compressible, normal augmentation. Deep Reflux: There is no evidence of reflux in the deep system in either the common femoral vein, superficial femoral or the popliteal vein. There is no evidence of a Gayle's cyst. 4. SUPERFICIAL ULTRASOUND WITH DOPPLER OF LEFT LOWER EXTREMITY: GREAT SAPHENOUS VEIN: Saphenofemoral Junction: 0.6 cm; Reflux: 0 ms Proximal Thigh: 0.5 cm; Reflux: 0 ms Mid Thigh: 0.3 cm; Reflux: 0 ms Above Knee: 0.3 cm; Reflux: 0 ms At Knee: 0.3 cm; Reflux: 0 ms Below Knee: 0.3 cm; Reflux: 0 ms Mid Calf: 0.2 cm; Reflux: 0 ms Ankle: 0.2 cm; Reflux: 0 ms DUPLICATED MEDIAL GREAT SAPHENOUS VEIN: Diameter: None imaged Reflux: NA DUPLICATED LATERAL GREAT SAPHENOUS VEIN: Diameter: 0.4 cm Reflux: None SMALL SAPHENOUS VEIN: Saphenopopliteal Junction: 0.5 cm; Reflux: 0 ms Proximal: 0.3 cm; Reflux: 0 ms Distal: 0.4 cm; Reflux: 0 ms VEIN OF GIACOMINI: Size: NA Reflux: NA PERFORATORS: Location: Posterior calf extending into the small saphenous vein Size: 0.3 to 0.5 cm Reflux: None VARICOSITIES: Location: Proximal thigh off the lateral duplicated great saphenous vein and great saphenous vein Size: 0.3 to 0.4 cm Reflux: None US/US venous duplex LE BI IMPRESSION: Right: Reflux in the great saphenous vein throughout the thigh as described above. No significant varicose veins Left: No significant reflux in the great saphenous vein or small saphenous vein. Varicose veins in the proximal thigh without significant reflux as described above
== END 2023-11-04 08:06 | disposition home or self-care (01) ==
LOC: HO.US 08:05
PROVIDERS: PCP Internal Medicine; Visit Provider Surgery Vascular Surgery
DX: I83.11 Varicose veins of right lower extremity with inflammation (principal)
CPT/HCPCS: 93970

== ENCOUNTER 2023-11-25 09:20 | Outpatient (AMB) | payer OTHER, SELFPAY ==
--- NOTE | 2023-11-25 09:21 | MHC.OFFVIS ---
Vital Signs 11/25/23 09:23 Height 5 ft 5 in Weight 226 lb 10.163 oz BMI 37.7 BP 124/70 Blood Pressure Location Lt brachial Position Sitting Pulse 58 Pulse Source Pulse Oximeter Pulse Oximetry (%) 97 Oxygen Delivery Method Room Air Intake Visit Reasons: 3 month follow up GERD, retest for h-pylori Intake Note: Juan presents in office today for a scheduled 3 mos FUV. Pt reports that they have been doing well since their last visit. Pt does report having breakthrough GERD sx but typically they are OK. Pt has been trying to avoid trigger foods when able. Pt has been off of the pantoprazole as instructed. Pt did have something to eat within the last hour. Pt states that it was approximately 30-40 minutes ago. Pt reports that his PCP also had him get some blood work drawn. Results showed elevated liver enzymes. Gas Analyst Required: No Accompanied by: Spouse Allergies No Known Allergies Allergy (Verified 12/15/23 15:16) HPI HPI 3 month follow up GERD, retest for h-pylori: Details: LAST VISIT Tubular adenoma of colon Helicobacter pylori (H. pylori) Acid reflux Status post colonoscopy Plan H pylori found on upper endoscopy and patient will need to be treated. Will start quadruple therapy. Patient was instructed to take all of his medication and he will need to be retested after. Increase pantoprazole to twice a day. Colonoscopy showed 1 tubular adenoma rest of the polyps were hyperplastic. No dysplasia or carcinoma was identified. Colonoscopy will need to be repeated in 5 years. Patient will return to our office in 3 months so he can get retested for H pylori. He is agreeable to this plan and verbalizes understanding of instructions. He was given the opportunity to ask questions and all questions answered. ? Thank you for allowing me to participate in her care Medications New tetracycline 1,000 mg (2 x 500 mg) PO Q12H 56 caps 0RF A04.8 metronidazole 1,000 mg (2 x 500 mg) PO BID 56 tabs 0RF A04.8 bismuth subsalicylate 2 tabs PO QID 14 days 112 tabs 0RF A04.8 Changed Changed From pantoprazole 20 mg PO QAM 30 tabs 6RF Changed To pantoprazole 20 mg PO BID 60 tabs 2RF TODAY'S VISIT Patient is here today for follow-up. Patient diagnosed on upper endoscopy with biopsy positive for H pylori. Patient treated with 2 weeks of antibiotics of quadruple therapy. Patient reports that he finished his antibiotics. Did not miss any doses. Will do H pylori testing in the office if possible today. Last meal about 40 minutes ago or so. Patient reports that he is not taking any PPIs as he finish it. Occasional acid reflux depending on what he eats. Patient denies any dyspepsia, dysphagia or odynophagia. Denies any melena, hematochezia. Reports to be moving his bowels well without any issues. Denies any other GI concerning symptoms today [facility] Medical History Helicobacter pylori (H. 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 pylori): Code(s): A04.8 - Other specified bacterial intestinal infections Category: Medical Plan Repeat H pylori and will treat empirically if positive. Patient reports that he currently have no symptoms most likely his test will be negative. Patient has been off PPI for over couple months. May use famotidine on as needed basis at bedtime. Avoid dietary triggers and late night snacking. Follow-up in the office as needed unless his H pylori is positive. Patient will call our office if he will have any GI concerning symptoms. He is agreeable to this plan and verbalizes understanding of instructions. He was given the opportunity to ask questions and all questions answered. Thank you for allowing me to participate in his care Orders: Orders H Pylori Breath Test 11/25/23 K21.9 - Gastro-esophageal reflux disease without esophagitis Medications: New famotidine (Pepcid) 20 mg PO BEDTIME 30 tabs 3RF K21.9 - Gastro-esophageal reflux disease without esophagitis Discontinued pantoprazole Discontinued Reason: Patient no longer taking 20 mg PO BID 60 tabs 2RF bismuth subsalicylate Discontinued Reason: Patient no longer taking 2 tabs PO QID 14 days 112 tabs 0RF A04.8 - Other specified bacterial intestinal infections Coding Level of Care Code Est Pt Level 3 (15177) Diagnoses Gastroesophageal reflux disease, unspecified whether esophagitis present K21.9 Esophagitis presence: esophagitis presence not specified Helicobacter pylori (H. pylori) A04.8 Time Spent (min) 30 Comment 20 minutes spent with patient and additional 10 minutes spent reviewing his records
[2023-11-25 09:23] VITALS: BP 124/70; PULSE 58; O2SAT 97; BMI 37.7
== END 2023-11-25 10:35 | disposition home or self-care (01) ==
PROVIDERS: PCP Internal Medicine; Visit Provider Nurse Practitioner Family
DX: K21.9 Gastro-esophageal reflux disease without esophagitis (principal); A04.8 Other specified bacterial intestinal infections
CPT/HCPCS: 99213

== ENCOUNTER 2023-11-25 09:20 | Outpatient (REF) | payer OTHER, SELFPAY ==
[2023-11-26 12:29] LABS: H Pylori Breath Test Negative (Negative)
== END 2023-11-25 09:21 | disposition home or self-care (01) ==
LOC: HO.LNP 09:20
PROVIDERS: PCP Internal Medicine; Visit Provider Nurse Practitioner Family
DX: K21.9 Gastro-esophageal reflux disease without esophagitis (principal)
CPT/HCPCS: 83013; 99212

== ENCOUNTER 2023-12-15 15:10 | Outpatient (AMB) | payer OTHER, SELFPAY ==
[2023-12-15 15:13] VITALS: BMI 37.6
--- NOTE | 2023-12-15 15:13 | A.OFFVIS_ITS ---
Vital Signs 12/15/23 15:13 Height 5 ft 5 in Weight 226 lb BMI 37.6 Intake Visit Reasons: Follow up 11/04/23 Intake Note: follow up 11/04/23 for VV w/ swelling and pain. Pt states he is very active and plays soccer and after his VV are large and legs are swollen and aching. Accompanied by: Self / Same As Patient Allergies No Known Allergies Allergy (Verified 12/15/23 15:16) HPI HPI Follow up [facility] 11/04/23: Details: Very pleasant 48-year-old gentleman presents for follow-up regarding lower extremity pain and discomfort. He reports that he had some swelling and discomfort in particular varicosity over the posterior aspect of his right calf. 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 He now presents for follow-up with venous insufficiency testing. Of note he has been using yessenia neelam with fair amount of relief from this. [facility] Medical History Helicobacter pylori (H. 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 Review of Systems Const All systems reviewed & are unremarkable except as noted in HPI and below Reports no additional complaints ENT Reports Normal hearing present Card Denies chest pain, Denies chest pain at rest, Denies chest pain with activity and Denies pedal edema Resp Denies cough GI Denies abdominal pain Musc Denies abnormal gait, Denies muscle cramps and Denies radiating pain into limb Skin/Breast Denies skin ulcer and Denies wounds Neuro Reports Normal hearing present and Denies abnormal gait Psych Reports no additional complaints Physical Exam Vital Signs: BMI result Body Mass Index 37.6 Const General: cooperative, healthy appearing and comfortable Orientation/consciousness: oriented to person, oriented to place and oriented to time HEENT Head: Yes normal to inspection Neck Neck: Yes normal visual inspection Carotids: no bruits Chest Chest palpation & inspection: normal inspection of the chest Resp Effort & Inspection: normal respiratory effort and able to speak in complete sentences Auscultation: clear to auscultation bilaterally, no crackles, no rales, no rhonchi and no wheezes Cardio Rate: regular rate Rhythm: regular rhythm Heart sounds: S1 normal heart sound present and S2 normal heart sound present Bruits: no carotid bruits Peripheral pulses: Peripheral pulses 2+ throughout GI Inspection: Yes normal to inspection Skin Wounds: no wounds Hair: normal Neuro General: oriented to person, oriented to place and oriented to time Cranial nerves: Yes CN's II-XII intact bilaterally and Yes Normal hearing pr esent Cognition (Neuro): normal cognition Motor exam (neuro): 5/5 motor strength present throughout Extrem Other: venous exam: +1 edema right greater than left. Singulair varicosity in the right posterior calf more towards the gastroc heads. General: No clubbing, No cyanosis and No edema Psych Appearance: grossly normal Mental Status: mental status grossly normal Speech and movement: Normal speech and movement present Results Reviewed Results Reviewed: Brief summary of venous insufficiency testing is as follows: right great saphenous vein: Focally positive right thigh right small saphenous vein: negative right accessory vein: none present left great saphenous vein: negative left small saphenous vein: negative left accessory vein: none present Please note there is no evidence of any venous aneurysms or significant tortuosity Assessment & Plan Assessment & Plan (1) Varicose veins of right lower extremity with inflammation: Code(s): I83.11 - Varicose veins of right lower extremity with inflammation Category: Medical Plan: Essentially his venous insufficiency testing is negative. He does have focal reflux in the right thigh but vein is relatively small in caliber. Would not recommend intervention for this. We did discuss routine conservative measures including compression, elevation, and exercise. In terms of that singular varicosity in the posterior calf it is not irritating him at the current time. He appears to be doing relatively well with compression. Should it be, issue in the future happy to see him back for removal. This was all discussed with the patient. He was in agreement. Thank you for allowing us to assist in his care. If there are any questions or concerns please do not hesitate to contact us. Coding Level of Care Code Est Pt Level 4 (04359) Diagnoses Varicose veins of right lower extremity with inflammation I83.11
== END 2023-12-15 15:24 | disposition home or self-care (01) ==
PROVIDERS: PCP Internal Medicine; Visit Provider Surgery Vascular Surgery
DX: I83.11 Varicose veins of right lower extremity with inflammation (principal)
CPT/HCPCS: 99214

== ENCOUNTER → 2023-12-15 15:10 | Outpatient (BNVA) | payer OTHER, SELFPAY | PROVIDERS: PCP Internal Medicine; Visit Provider Surgery Vascular Surgery | DX: I83.11 Varicose veins of right lower extremity with inflammation (principal) | CPT/HCPCS: 99212 ==

== ENCOUNTER 2024-08-31 11:49 | Outpatient (REF) | payer OTHER, SELFPAY ==
--- OUTSIDE RECORDS SUMMARY | 2024-08-31 12:40 | XMS_ITS | Encounter Summary ---
Author Organization [employer] Address [address] [place] [address] Care Team Providers Care Sandwich Hand Name Role Phone Alejandro Araiza MD Primary Care Provider [phone] Encounter Details Date Type Department Care Team (Latest Contact Info) Description 08/31/2024 Travel Social History Tobacco Use Types Packs/Day Years Used Date Smoking Tobacco: Never Passive Smoke Exposure: Never Smokeless Tobacco: Never Alcohol Use Standard Drinks/Week Comments Yes 1 (1 standard drink = 0.6 oz pur e alcohol) Depression Answer Date Recorded Patient Health Questionnaire-9 Score 0 08/31/2024 Patient Health Questionnaire-9 Score 0 08/31/2024 Last PHQ-9: Questionnaire Data Not on file 0 08/31/2024 Housing Stability Answer Date Recorded What is your housing situation today? I have afua zheng 08/21/[address] you li ve. Do you have problems with any of the following? None of the above 08/21/2023 Food Insecurity Answer Date Recorded Within the past 12 months, y ou worried that your food would run out before you got money to buy more: Never True 08/21/2023 Within the past 12 months,th e food you bought just didn't last and you didn't have enough money to get more: Never True Transportation Answer Date Recorded In the past 12 months, has l ack of transportation kept you from medical appts, meetings, work or from getting things needed for daily living? No 08/21/2023 Utilities Answer Date Recorded In the past 12 months, has t he electric, gas, oil or water company threatened to shut off services in your home? No 08/21/2023 Depression Answer Date Recorded Patient Health Questionnaire-2 Score 0 08/31/2024 Internet Access Answer Date Recorded Internet Access Q1 Yes 08/31/2024 Internet Access Q2 Not on file 08/31/2024 Sex and Gender Information Value Date Recorded Sex Assigned at Male 02/03/2022 10:20 AM EDT Legal Sex Male 10:20 AM EDT Gender Identity Male 02/03/2022 10:20 AM EDT Sexual Orientation Straight 02/03/2022 10 :20 AM EDT documented as of this encounter Functional Status * Over the past 2 weeks, how often have you been bothered by any of the following problems? Question Answer Date of Assessment Author Patient Health Questionnaire-2 Score 0 08/05 11:02 AM EDT Erica Evans MA * Little interest or pleasure in doing things Answer Date of Assessment Author Not at all 08/31/2024 11:02 AM EDT Yelitza Evans MA * Feeling down, depressed, or hopeless Answer Date of Assessment Author Not at all 08/31/2024 11:02 AM EDT Yelitza Evans MA * Trouble falling or staying asleep, or sleeping too much Answer Date of Assessment Author Not at all 08/31/2024 11:02 AM EDT Yelitza Evans MA * Feeling tired or having little energy Answer Date of Assessment Author Not at all 08/31/2024 11:02 AM EDT Yelitza Evans MA * Poor appetite or overeating Answer Date of Assessment Author Not at all 08/31/2024 11:02 AM DIANELYST Yelitza Evans MA * Feeling bad about yourself - or that you are a failure or have let yourself or your family down Answer Date of Assessment Author Not at all 08/31/2024 11:02 AM Yelitza Johnston MA * Trouble concentrating on things, such as reading the newspaper or watching television Answer Date of Assessment Author Not at all 08/31/2024 11:02 AM Yelitza Johnston MA * Moving or speaking so slowly that other people could have noticed? Or the opposite - being so fidgety or restless that you have been moving around a lot more than usual. Answer Date of Assessment Author Not at all 08/31/2024 11:02 AM EDT Yelitza Evans MA * Thoughts that you would be better off or hurting yourself in some way Answer Date of Assessment Author Not at all 08/31/2024 11:02 AM EDT Yelitza Evans MA * Patient Health Questionnaire-9 Score Answer Date of Assessment Author 0 08/31/2024 11:02 AM EDT Yelitza Evans MA documented as of this encounter Plan of Treatment Upcoming Encounters Date Type Department Care Team (Late st Contact Info) Description 09/09/2024 8:00 AM EDT Office Visit [facility] [address] [place] [address] Clive Brandt [address] [place] [address] 03/06/2025 8:00 AM EST Office Visit [facility] [address] [place] [address] Leta Crawford documented as of this encounter Visit Diagnoses Not on filedocumented in this encounter Additional Health Concerns Assessment Noted Time PHQ-9 Depression Total Score: 0 09/01/19 25 11:02 AM EDT documented as of this encounter Care Teams Sandwich Hand Relationship Specialty Start Date End Date Alejandro Araiza MD [address] [place] [address] PCP - General Internal Medicine 05/23/14 documented as of this encounter
[2024-08-31 14:26] LABS: MANUAL DIFF FLAG NO
[2024-08-31 14:38] LABS: Basophils Percent Auto 0.5 % (0-2); Eosinophils Absolute Auto 0.2 X10*3/uL (0.0-0.4); Eosinophils Percent Auto 3.8 % (0-4); Hematocrit 47.7 % (42.0-52.0); Hemoglobin 15.9 g/dl (14.0-18.0); Imm Gran Abs Auto 0.03 X10*3/uL (0.00-0.03); Imm Gran Pct Auto 0.5 % (0.0-0.4); Lymphocytes Absolute Auto 2.4 X10*3/uL (1.2-4.9); Mean Corpuscular HGB Conc 33.3 g/dl (31.0-36.0); Mean Corpuscular Hemoglobin 28.5 pg (27.0-33.0); Mean Corpuscular Volume 85.5 fL (80.0-98.0); Mean Platelet Volume 10.2 fL (9.4-12.4); Monocytes Absolute Auto 0.5 X10*3/uL (0.1-1.2); Monocytes Percent Auto 8.6 % (2-11); Neutrophils Absolute Auto 2.9 x10*3/uL (2.0-8.3); Neutrophils Percent Auto 47.6 % (45-73); Platelet Count 202 X10*3/uL (160-400); Red Blood Count 5.58 X10*6/uL (4.60-5.80); Red Cell Distribution Width 12.8 % (11.0-16.0)
[2024-08-31 14:45] LABS: Alanine Aminotransferase 62 U/L (0-40); Albumin Level 4.8 g/dL (3.5-5.0); Alkaline Phosphatase 45 U/L (39-117); Anion Gap 10 (12-20); Aspartate Amino Transferase 32 U/L (5-37); Bilirubin Total 0.6 mg/dL (0.0-1.0); Blood Urea Nitrogen 16 mg/dL (9-16); Calcium 9.5 mg/dL (8.4-10.2); Carbon Dioxide 28 mmol/L (22-29); Chloride 105 mmol/L (96-108); Cholesterol 185 mg/dL (<200); Estimated Glomerular Filt Rate > 60; Glucose Random 92 mg/dL (60-115); HDL Cholesterol 40 mg/dL (>40); LDL Cholesterol Calculated 115 mg/dL (<100); Potassium 4.1 mmol/L (3.3-5.1); Sodium 139 mmol/L (135-145); Total Protein 7.4 g/dL (6.5-8.0); Triglycerides 151 mg/dL (<150)
[2024-08-31 15:02] LABS: TSH reflex Free T4 1.58 uIU/mL (0.32-4.0)
== END 2024-08-31 11:50 | disposition home or self-care (01) ==
LOC: HO.CHCLDS 11:49
PROVIDERS: Visit Provider Internal Medicine
DX: E78.1 Pure hyperglyceridemia (principal)
CPT/HCPCS: 36415; 80053; 80061; 84443; 85025

== ENCOUNTER 2024-09-12 11:02 | Outpatient (REF) | payer OTHER, SELFPAY ==
--- NOTE | ~2024-09-12 | XR_ITS ---
EXAMINATION: XR CHEST 2 VIEWS HISTORY: cough w/ fever COMPARISON: There are no prior studies available for comparison. FINDINGS: PA and lateral views of the chest are submitted. There is airspace opacity of the left lower lobe, consistent with pneumonia. The right lung is clear. There is no pleural effusion, pneumothorax, or pulmonary vascular congestion. The heart is normal in size. The bones are intact. XR/XR chest 2V IMPRESSION: Left lower lobe pneumonia. Follow-up is recommended to document resolution. Electronically signed by: Gio Reynolds MD 09/12/2024 12:40 PM EDT
--- OUTSIDE RECORDS SUMMARY | 2024-09-12 12:37 | XMS_ITS | Encounter Summary ---
Author Organization [employer] Address [address] [place] [address] 7 [place] [address] Care Team Providers Care Travelift Operator Name Role Phone Alejandro Araiza MD Primary Care Provider [phone] Encounter Details Date Type Department Care Team (Late st Contact Info) Description 04/23/2023 Orders Only [facility] [address] [place], [place] [phone] Alejandro Araiza MD [address] [place] [address] Annual physical exam (Primary Dx) Social History Tobacco Use Types Packs/Day Years Used Date Smoking Tobacco: Never Passive Smoke Exposure: Never Smokeless Tobacco: Never Alcohol Use Standard Drinks/Week Comments Yes 1 (1 standard drink = 0.6 oz pur e alcohol) Depression Answer Date Recorded Patient Health Questionnaire-9 Score 0 08/27/2022 Depression Answer Date Recorded Patient Health Questionnaire-2 Score 0 08/27/2022 Sex and Gender Information Value Date Recorded Sex Assigned at Male 02/03/2022 10:20 AM EDT Legal Sex Male 10:20 AM EDT Gender Identity Male 02/03/2022 10:20 AM EDT Sexual Orientation Straight 02/03/2022 10 :20 AM EDT documented as of this encounter Miscellaneous Notes * Result Encounter Note - Alejandro Araiza MD - 04/23/2023 1:26 PM EST Please call. Labs reviewed: No antibodies against Hep B detected. Pt needs to Receive his Hep B series. documented in this encounter Plan of Treatment Upcoming Encounters Date Type Department Care Team (Late st Contact Info) Description 03/06/2025 8:00 AM EST Office Visit [facility] [address] [place] [address] Leta Crawford documented as of this encounter Procedures Procedure Name Priority Date/Time Associated Diagnosis Comments HEMATOXYLIN AND EOSIN STAIN Routine 08/12/2023 12:56 PM EDT Annual physical exam MEASLES, MUMPS, AND RUBELLA (MMR) AB (IGG) PANEL, IMMUNE STATUS Routine 04/24/2023 12:43 PM EST Annual physical exam HEPATITIS PANEL, GENERAL Routine 04/24/2023 12:43 PM EST Annual physical exam POLIOVIRUS (TYPES 1,3) AB NEUTRALIZATION Routine 04/24/2023 12:43 PM EST Annual physical exam VARICELLA ZOSTER ANTIBODY, IGG Routine 04/24/2023 12:43 PM EST Annual physical exam documented in this encounter Results * Hematoxylin and Eosin Stain (08/12/2023 12:56 PM EDT) 08/12/2023 12:5 6 PM EDT 08/12/2023 2:00 PM EDT [facility] - 08/14/2023 9:55 AM EDT ----- ------- Name: Juan Clarke ? Age/Sex: 48/M ? : 1975 Unit#: [id number] ?? Attend Dr: Marilyn Matt MD ?Re08/12/23 ?Status: DEP SDC ? Location: HO.SSS ?Disch: ? ----- ------- SPEC : [id number] ? RECD: 08/12/23-1400 ? STATUS: ??SOUT ? REQ NUM: [id number] ? RUBENS: 08/12/23-1256 ? SUBM DR: Marilyn Matt MD ? ENTERED: ??08/12/23-1412 ?SP TYPE: Surgical ? OTHR DR: Mary Walton MD ? ORDERED: ??HE Stain/18, Gross Micro L4/8, IHC/2, Special st. 2/3, H. pylori/2, AB/PAS/3 ? Diagnosis ?? A. ??Stomach, random, biopsy: ?- Antral-type and oxyntic mucosa with moderate chronic inactive inflammation. ?- Positive for H pylori. ? B. ??Stomach, polyp: ?- Hyperplastic mucosal polyp with background moderate chronic active inflammation. ?- Positive for H. pylori. ? C. ??GE junction, biopsy: ?- Cardiofundic-type mucosa with moderate chronic inactive inflammation; no intestinal ?? metaplasia seen. ?- Active esophagitis (maximum eosinophil count 1 per high powered field). ? D. ??Esophagus, distal, biopsy: ??Active esophagitis (maximum eosinophil count 1 per high ?? powered field). ? E. ??Esophagus, proximal, biopsy: ??Squamous epithelium within normal limits; no ?? inflammation seen. ? F. ?? Colon, descending, polypectomy: ??Tubular adenoma; negative for high- grade dysplasia ?? or carcinoma. ? G. ??Colon, sigmoid polyp, biopsy: ??Hyperplastic mucosal polyp. ? H. ??Rectum, polyp, biopsy: ??Hyperplastic mucosal polyp. ?Clinical History Pre-Op Dx: ??Gastro-esophageal reflux disease without esophagitis Post-Op Dx: Upper: esophagitis, gastric polyp, possible Amato's; Lower: polyps and internal hemorrhoids ?Microscopic Description A-H. ??Microscopic sections examined. ??No metaplastic changes are seen, supported by AB/PAS stains (A-C); Helicobacter organisms are seen, supported by H. pylori immunostain (A and B). ? CONTINUED ON NEXT PAGE ----- ------- Name: Juan Clarke ? Age/Sex: 48/M ? : 1975 Unit#: [id number] ?? Attend Dr: Marilyn Matt MD ?Re08/12/23 ?Status: DEP SDC ? Location: HO.SSS ?Disch: ? ----- ------- SPEC : [id number] ? RECD: 08/12/23-1400 ? STATUS: ??SOUT ? REQ NUM: [id number] ? RUBENS: 08/12/23-1256 ? SUBM DR: Marilyn Matt MD ? ENTERED: ??08/12/23-1411 ?SP TYPE: Surgical ? OTHR DR: Mary Walton MD ? ORDERED: ??HE Stain/18, Gross Micro L4/8, IHC/2, Special st. 2/3, H. pylori/2, AB/PAS/3 ? Material Received ?? A. Random stomach bx ?? B. Stomach polyp ?? C. GE junction bx ?? D. Distal esophagus bx ?? E. Proximal esophagus bx ?? F. Descending colon polyp ?? G. Sigmoid polyp bx ?? H. Rectal polyp bx ? Gross Description Received in eight parts. Part A: ??Received in formalin labeled ?random stomach bx? are 3 humphreys- pink irregular tissue fragments ranging from 0.1-0.2 cm, submitted in toto in a cassette labeled A. Part B: ??Received in formalin labeled ?stomach polyp? is a 0.6 cm humphreys-pink papular tissue fragment, submitted in toto in a cassette labeled B. Part C: ??Received in formalin labeled ?GE junction bx? are 4 humphreys and humphreys-pink irregular tissue fragments ranging from 0.1-0.25 cm, submitted in toto in a cassette labeled C. Part D: ??Received in formalin labeled ?distal esophagus bx? are 2 begum-white irregular and rectangular tissue fragments measuring 0.15 and 0.35 cm, submitted in toto in a cassette labeled D. Part E: ??Received in formalin labeled ?proximal esophagus bx? are 2 begum-white irregular and rectangular tissue fragments measuring 0.2 and 0.45 cm, submitted in toto in a cassette labeled E. Part F: ??Received in formalin labeled ?descending colon polyp? along with copious mucogelatinous material and debris are a few minute to 0.35 cm humphreys-pink irregular, rectangular and papular tissue fragments aggregating 1.0 x 1.0 x 0.25 cm, submitted in toto in a cassette labeled F. Part G: ??Received in formalin labeled ?sigmoid polyp? are 2 humphreys-pink irregular tissue fragments measuring 0.2 and 0.3 cm, submitted in toto a cassette labeled G. Part H: ??Received in formalin labeled ?rectal polyp bx? is a 0.3 cm humphreys-pink irregular tissue fragment, submitted in toto in a cassette labeled H. ??CEDS Special studies ordered and performed: Immunostain for H. pylori on A and B; AB/PAS stains ? CONTINUED ON NEXT PAGE ----- ------- Name: VinceJuan michel ? Age/Sex: 48/M ? : 1975 Unit#: [id number] ?? Attend Dr: Marilyn Matt MD ?Re08/12/23 ?Status: DEP SDC ? Location: HO.SSS ?Disch: ? ----- ------- SPEC : [id number] ? RECD: 08/12/23-1400 ? STATUS: ??SOUT ? REQ NUM: [id number] ? RUBENS: 08/12/23-1256 ? SUBM DR: Marilyn Matt MD ? ENTERED: ??08/12/23-141 ?SP TYPE: Surgical ? OTHR DR: Mary Walton MD ? ORDERED: ??HE Stain/18, Gross Micro L4/8, IHC/2, Special st. 2/3, H. pylori/2, AB/PAS/3 ? Gross Description ?(Continued) on A-C Copies To: ?? Mary Walton MD ?? [address] ?? [place] [address] ?? [phone] ?? Marilyn Matt MD ?? [address] [facility] ?? [facility], [place] [address] ?? [phone] ----- ------- Signed (signature on file) Stephan Pimentel MD 08/14/23 0955 ? ----- ------- ? END OF REPORT ? us Generic External Data Provider LAB BLOOD ORDERAB LES Final Result [facility] [address] [place] [address] [phone] * Poliovirus (Types 1,3) Antibody Neutralization (04/24/2023 12:43 PM EST) Polio 1 Titer 1:64 [facility] Polio 3 Titer >1:128 [facility] Comment:REFERENCE RANGE: CARMEN IO 1 TITER: <1:8 POLIO 3 TITER: <1:8The presence of neutralizing serum antibodies (titers of1:8 up to >1:128) against polioviruses implies lifelongimmunity. Some persons without detectable titers (<1:8)may also be immune as demonstrated by elicitation of asecondary-type serum antibody response upon rechallengewith live polio vaccine.This test was developed and its analytical performancecharacteristics have been determined by [employer].It has not been cleared or approved by FDA. This assay hasbeen validated pursuant to the CLIA regulations and isused for clinical purposes.THIS TEST WAS PERFORMED AT:[employer] [id number] [place] [id number] LERMA MD,PHD,CHOLO Blood Venous blood specimen / Unknown 04/24/2023 12:43 PM EST 04/24/2023 2:45 PM EST us Alejandro Araiza MD LAB BLOOD ORDERABLES Final Result Performing Organization Address [facility] Co de Phone Number [facility] [address] [place] [phone] * Hepatitis Panel, General (04/24/2023 12:43 PM EST) Hepatitis A IgM Nonreactive Nonreactive [facility] Comment:IgM antibodies to MCINTOSH V not detected; does not exclude earlyacute or recovered HAV infection. ~Hepatitis B Surface Antibody NONREACTIVE Nonreactive [facility] Comment:Nonreactive: < 8.00 mIU/mL Hepatitis B Core Antibody Nonreactive Nonreactive [facility] Hepatitis C Antibody Nonreactive Nonreactive [facility] Comment:Antibodies to HCV no t detected; does not exclude early acuteHCV infection. Hepatitis B Surface Ag Negative Negative [facility] Blood 04/24/2023 12:4 3 PM EST 04/24/2023 2:45 PM EST lAejandro Araiza MD LAB BLOOD ORDERABLES Final Result Performing Organization Address City/[facility]/ZIP Co de Phone Number [facility] [address] [place] [address] [phone] * Varicella Zoster Antibody, IgG (04/24/2023 12:43 PM EST) Varicella IgG Antibody 1216.00 index [facility] Comment:Index Interpretation --------- <135.00 Negative - Antibody not detected 135.00 - 164.99 Equivocal > or = 165.00 Positive - Antibody detected A positive result indicates that the patient has antibody to VZV but does not differentiate between an active or past infection. The clinical diagnosis must be interpreted in conjunction with the clinical signs and symptoms of the patient. This assay reliably measures immunity due to previous infection but may not be sensitive enough to detect antibodies induced by vaccination. Thus, a negative result in a vaccinated individual does not necessarily indicate susceptibility to VZV infection. A more sensitive test for vaccination-induced immunity is Varicella Zoster Virus Antibody Immunity Screen, ACIF.THIS TEST WAS PERFORMED AT:[employer] [place] [id number] CASEY MD Blood Venous blood specimen / Unknown 04/24/2023 12:43 PM EST 04/24/2023 2:45 PM EST Alejandro Araiza MD LAB BLOOD ORDERABLES Final Result Performing Organization Address [facility] Co de Phone Number [facility] [address] [place] [phone] * Measles, Mumps, and Rubella (MMR) Antibodies??(IgG) Panel, Immune Status (04/24/2023 12:43 PM EST) Mumps Virus IgG Antibody 92.20 AU/mL [facility] Comment:AU/mL Interpretation ------- <9.00 Not consistent with immunity9.00-10.99 Equivocal>10.99 Consistent with immunityThe presence of mumps IgG antibody suggests immunizationor past or current infection with mumps virus. Rubella IgG Antibody 2.14 Index [facility] Comment:Index Interpretation ----- <0.90 Not consistent with immunity 0.90-0.99 Equivocal > or = 1.00 Consistent with immunityThe presence of rubella IgG antibody suggestsimmunization or past or current infection withrubella virus.THIS TEST WAS PERFORMED AT:[facility] [place] [id number] CASEY MD Rubeola IgG (Measles) 261.00 AU/mL [facility] Comment:AU/mL Interpretation ----- <13.50 Not consistent with gqtwrfpo07.50-16.49 Equivocal>16.49 Consistent with immunityThe presence of measles IgG suggests immunization orpast or current infection with measles virus.For additional information, please refer tohttp://education.[employer]/faq/GHZ141(This link is being provided for informational/educational purposes only.) Blood Venous blood specimen / Unknown 04/24/2023 12:43 PM EST 04/24/2023 2:45 PM EST Alejandro Araiza MD LAB BLOOD ORDERABLES Final Result [facility] [address] [place] [address] [phone] documented in this encounter Visit Diagnoses Diagnosis Annual physical exam- Primary Routine general medical examination at a health care facility documented in this encounter Additional Health Concerns Assessment Noted Time PHQ-9 Depression Total Score: 0 08/28/19 23 11:37 AM EDT documented as of this encounter Care Teams Travelift Operator Relationship Specialty Start Date End Date Alejandro Araiza MD [address] [place] [phone] PCP - General Internal Medicine 05/23/14 documented as of this encounter
[2024-09-12 14:24] LABS: MANUAL DIFF FLAG NO
[2024-09-12 14:33] LABS: Basophils Percent Auto 0.2 % (0-2); Eosinophils Absolute Auto 0.1 X10*3/uL (0.0-0.4); Eosinophils Percent Auto 0.9 % (0-4); Hematocrit 44.7 % (42.0-52.0); Hemoglobin 14.9 g/dl (14.0-18.0); Imm Gran Abs Auto 0.05 X10*3/uL (0.00-0.03); Imm Gran Pct Auto 0.4 % (0.0-0.4); Lymphocytes Absolute Auto 1.5 X10*3/uL (1.2-4.9); Lymphocytes Percent Auto 12.2 % (20-40); Mean Corpuscular HGB Conc 33.3 g/dl (31.0-36.0); Mean Corpuscular Hemoglobin 28.9 pg (27.0-33.0); Mean Corpuscular Volume 86.8 fL (80.0-98.0); Mean Platelet Volume 10.2 fL (9.4-12.4); Monocytes Absolute Auto 0.7 X10*3/uL (0.1-1.2); Monocytes Percent Auto 5.9 % (2-11); Neutrophils Absolute Auto 9.8 x10*3/uL (2.0-8.3); Neutrophils Percent Auto 80.4 % (45-73); Platelet Count 196 X10*3/uL (160-400); Red Blood Count 5.15 X10*6/uL (4.60-5.80); Red Cell Distribution Width 12.9 % (11.0-16.0); White Blood Count 12.2 X10*3/uL (4.8-10.8)
[2024-09-12 14:42] LABS: Anion Gap 11 (12-20); Blood Urea Nitrogen 14 mg/dL (9-16); C Reactive Protein 12.25 mg/dL (< or = 0.50); Calcium 9.5 mg/dL (8.4-10.2); Carbon Dioxide 24 mmol/L (22-29); Chloride 104 mmol/L (96-108); Estimated Glomerular Filt Rate > 60; Glucose Random 121 mg/dL (60-115); Potassium 4.3 mmol/L (3.3-5.1); Sodium 135 mmol/L (135-145)
[2024-09-12 15:30] LABS: Erythrocyte Sedimentation Rate 30 MM/HR (0-15)
== END 2024-09-12 11:03 | disposition home or self-care (01) ==
LOC: HO.XRAY 11:02
PROVIDERS: PCP Internal Medicine; Visit Provider Internal Medicine
DX: R05.1 Acute cough (principal)
CPT/HCPCS: 36415; 71046; 80048; 85025; 85652; 86140

== ENCOUNTER → 2024-09-12 11:34 | Outpatient (BNV) | payer OTHER, SELFPAY | PROVIDERS: PCP Internal Medicine; Visit Provider Radiology Diagnostic Radiology | DX: J18.9 Pneumonia, unspecified organism (principal) | CPT/HCPCS: 71046 ==